=== PATIENT | male | born 1975 | race Caucasian/White ===

== ENCOUNTER 2024-12-18 21:46 | Emergency (ER) | payer BC ==
[~2024-12-18] VITALS: Ht 170.2 cm; Wt 99.8 kg
[2024-12-18] MEDS ORDERED: ALBUTEROL FS 2.5 MG/3 ML VIAL.NEB ONE (23:29)
[2024-12-18 23:43] LABS: APPEARANCE,URINE CLEAR (CLEAR); BLOOD, URINE NEGATIVE Ery/uL (NEGATIVE); LEUKOCYTE ESTERASE ,URINE NEGATIVE (NEGATIVE); NITRITE, URINE NEGATIVE (NEGATIVE); UGLUCOSE NEGATIVE (NEGATIVE)
[2024-12-18 23:46] VITALS: O2SAT 96
[2024-12-18 23:51] LABS: PLATELET COUNT (AUTO) 180 K/uL (150-450); RED BLOOD CELL COUNT(AUTO) 4.51 MIL/uL (4.5-6.0); RED CELL DISTRIBUTION WIDTH 14.1 % (11.5-15.0); WHITE BLOOD COUNT (AUTO) 8.0 K/uL (4.3-11.0)
[2024-12-18 23:53] LABS: AMPHETAMINE, URINE NEGATIVE (NEGATIVE); BARBITURATE, URINE NEGATIVE (NEGATIVE); BENZODIAZEPINE, URINE NEGATIVE (NEGATIVE); CANNABINOID, URINE NEGATIVE (NEGATIVE); COCCAINE, URINE NEGATIVE (NEGATIVE); OPIATE, URINE NEGATIVE (NEGATIVE)
[2024-12-18] MEDS: ALBUTEROL FS 2.5 MG/3 ML VIAL.NEB NEB ONE (23:54)
[2024-12-18 23:59] LABS: CALCIUM, SERUM 8.6 mg/dL (8.5-10.1); CREATININE 0.7 mg/dL (0.6-1.3); SODIUM SERUM 140 mmol/L (136-145); UREA NITROGEN, BLOOD 17 mg/dL (7-18)
[2024-12-19 00:01] VITALS: O2SAT 100
[2024-12-19 00:10] LABS: ASPARTATE AMINOTRANSFERASE 38 U/L (15-37); NT-PRO BNP 85 pg/mL (0-125); TOTAL PROTEIN, SERUM 6.8 g/dL (6.4-8.2)
[2024-12-19 00:21] LABS: ALCOHOL, BLOOD < 3 mg/dL (0-10)
[2024-12-19] MEDS ORDERED: AZIT250T PO (00:59)
[2024-12-19] MEDS ORDERED: ALBU8.5H8 INH (00:59)
[2024-12-19] MEDS ORDERED: BENZ-13 PO (00:59)
[2024-12-19] MEDS ORDERED: PRED50TA PO (00:59)
[2024-12-19 01:25] VITALS: BP 132/80; TEMP 98.2; O2SAT 100
== END 2024-12-19 01:25 | disposition home or self-care (01) ==
LOC: ER 21:51
DX: J20.9 Acute bronchitis, unspecified (principal); J44.1 Chronic obstructive pulmonary disease with (acute) exacerbation; Z79.52 Long term (current) use of systemic steroids; Z87.891 Personal history of nicotine dependence; Z79.899 Other long term (current) drug therapy; Z20.822 Contact with and (suspected) exposure to COVID-19
CPT/HCPCS: 36415; 71045-TC; 80053-TC; 83880; 84484-TC; 85025-TC; G0480